=== PATIENT | female | born 1965 | race American Indian/Alaskan Native ===

== ENCOUNTER 2020-02-26 05:56 | Day surgery (SDC) | payer MEDICARE ==
[2020-02-26] MEDS ORDERED: SODIUM CHLORIDE 0.9% 1000 ML 1,000 ML IV SCH (06:00)
[2020-02-26 07:25] LABS: Hematocrit 24.4 % (30.3-42.9); Hemoglobin 8.2 gm/dl (10.1-14.3); Mean Corpuscular HGB Conc 34 % (30-34); Mean Corpuscular Volume 95 fl (79-97); Platelet Count 149 K/mm3 (140-440); Red Blood Count 2.56 M/mm3 (3.65-5.03); Red Cell Distribution Width 15.8 % (13.2-15.2)
--- NOTE | 2020-02-26 07:34 | Anesthesia Consultation ---
Anesthesia Consult and Med Hx Date of service: 02/26/20 - Airway Anesthetic Teeth Evaluation: Poor ROM Head & Neck: Adequate Mental/Hyoid Distance: Adequate Mallampati Class: Class III Intubation Access Assessment: Possibly Difficult - Pulmonary Exam CTA: Yes - Cardiac Exam Cardiac Exam: RRR - Pre-Operative Health Status ASA Pre-Surgery Classification: ASA3 Proposed Anesthetic Plan: General - Pulmonary Hx Smoking: No Hx Respiratory Symptoms: No Hx Sleep Apnea: Yes (compliant with CPAP) - Cardiovascular System Hx Hypertension: Yes (poorly controlled) Hx Heart Attack/AMI: No Hx Percutaneous Transluminal Coronary Angioplasty (PTCA): No Hx Cardia Arrhythmia: No - Central Nervous System CVA: No - Endocrine Hx End Stage Renal Disease: Yes (last HD 02/25/20) Hx Liver Disease: No Hx Insulin Dependent Diabetes: No Hx Non-Insulin Dependent Diabetes: No Hx Thyroid Disease: No - Hematic Hx Anemia: Yes - Other Systems Hx Obesity: No - Additional Comments Anesthesia Medical History Comments: No hx anesthetic complications. Hypertensive in preop and patient states shse takes an extra dose of clonidine prn when BP is this high at home. Asymptomatic. Will give home dose clonidine in preop.
--- NOTE | 2020-02-26 07:34 | Anesthesia Day of Surgery ---
Anesthesia Day of Surgery - Day of Surgery Patient Examined: Yes Patient H&P Reviewed: Yes Patient is NPO: Yes
[2020-02-26 07:36] LABS: Calcium 8.7 mg/dL (8.4-10.2)
[2020-02-26] MEDS ORDERED: LIDOCAINE MPF (2%) 20 MG/1 ML VIAL 5 ML ONE (07:48)
[2020-02-26] MEDS ORDERED: ONDANSETRON 4 MG/2 ML INJ ONE (07:48)
[2020-02-26] MEDS ORDERED: fentaNYL 100 MCG/2 ML INJ ONE (07:49)
[2020-02-26] MEDS ORDERED: propofoL 200 MG/20 ML VIAL IV ONE (07:49)
[2020-02-26] MEDS ORDERED: GELATIN SPONGE SIZE 100 TP ONE ×2 (07:54→09:07)
[2020-02-26] MEDS ORDERED: HEPARIN 10,000 UNITS/10 ML VIAL ONE (07:54)
[2020-02-26] MEDS ORDERED: SODIUM CHLORIDE 0.9% 250ML 250 ML ONE (07:54)
[2020-02-26] MEDS ORDERED: THROMBIN (RECOMBINANT) 5,000 UNIT VIAL TP ONE ×2 (07:55→09:07)
[2020-02-26] MEDS ORDERED: ceFAZolin/STERILE WATER 2 GM/20 ML SYRINGE IV NR (08:00)
[2020-02-26] MEDS ORDERED: SODIUM CHLORIDE 0.9% IRR 1,000 ML BOTTLE IR ONE (09:06)
[2020-02-26] MEDS ORDERED: HEPARIN IR ONE (09:07)
[2020-02-26] MEDS ORDERED: SODIUM CHLORIDE 0.9% IR ONE (09:07)
[2020-02-26] MEDS ORDERED: PROTAMINE SULFATE 50 MG/5 ML INJ ONE (09:48)
--- NOTE | 2020-02-26 10:05 | Post Operative Note ---
Date of procedure: 02/26/20 Pre-op diagnosis: ESRD Post-op diagnosis: same Procedure: Right Arm AV Graft Insertion Anesthesia: GETA Surgeon: DEEP RODRIGUEZ Estimated blood loss: other (25ml) Pathology: none Condition: stable Disposition: PACU
[2020-02-26] MEDS ORDERED: oxyCODONE /ACETAMINOPHEN 5-325MG TAB PO PRN (10:06)
--- NOTE | 2020-02-26 10:06 | Short Stay Summary ---
Short Stay Documentation Date of service: 02/26/20 - History H&P: obtained from office Past Medical History: ESRD, hypertension - Allergies and Medications Current Medications: Allergies No Known Allergies Allergy (Unverified 02/19/20 14:25) Home Medications Medication Instructions Recorded Confirmed Last Taken Type Folic Acid/Vit B Complex and C 800 mcg PO DAILY 02/23/20 02/26/20 02/25/20 09:00 History [Dialyvite 800 Chewable Wafer] ISOSORBIDE MONOnitrate [Imdur ER] 30 mg PO DAILY 02/23/20 02/26/20 02/26/20 05:00 History NIFEdipine [Adalat cc] 90 mg PO DAILY 02/23/20 02/26/20 02/26/20 05:00 History Sevelamer Carbonate [Renvela] 800 mg PO TIDWM 02/23/20 02/26/20 02/25/20 19:00 History Zolpidem [Ambien] 5 mg PO QHS PRN 02/23/20 02/26/20 02/25/20 20:00 History cloNIDine [Catapres] 0.1 mg PO DAILY PRN 02/23/20 02/26/20 02/26/20 07:28 History hydrALAZINE [Apresoline TAB] 200 mg PO TID 02/23/20 02/26/20 02/26/20 05:00 History Active Medications Cefazolin Sodium (Ancef/Sterile Water 2 Gm/20 Ml) 2 gm IV PREOP NR Stop: 02/26/20 20:00 Fentanyl (Sublimaze) 50 mcg IV Q5MIN PRN PRN Reason: Pain , Severe (7-10) Stop: 02/26/20 20:00 Sodium Chloride (Nacl 0.9% 1000 Ml) 1,000 mls @ 42 mls/hr IV DIRECT RAJAN Stop: 02/26/20 23:59 Last Admin: 02/26/20 07:55 Dose: 42 mls/hr Documented by: - Physical exam General appearance: no acute distress HEENT: Atraumatic Lungs: Normal air movement Heart: Regular rate Extremities: no ischemia - Hospital course Hospital course: the patient was taken to the operating room and had a right arm av graft insertion performed. please refer to the operative note concerning details of the procedure. the patient tolerated the procedure well and was discharged home in stable condition. - Disposition Condition at discharge: Stable Disposition: DC-01 TO HOME OR SELFCARE Short Stay Discharge Plan Follow up with: PRIMARY CARE, [Primary Care Provider] - 7 Days
[2020-02-26] MEDS ORDERED: PHENYLEPHRINE/NS 1,000 MCG/10 ML SYRINGE (OR USE) IV ONE (10:11)
[2020-02-26] MEDS: fentaNYL 100 MCG/2 ML INJ IV PRN ×3 (10:25→10:45)
--- NOTE | 2020-02-26 10:31 | Operative Report ---
STAFF SURGEON: Dr. Vivek Abreu. PREOPERATIVE DIAGNOSIS: End-stage renal disease. POSTOPERATIVE DIAGNOSIS: End-stage renal disease. PROCEDURE PERFORMED: Right arm arteriovenous graft insertion. COMPLICATIONS: None. ESTIMATED BLOOD LOSS: 25 mL. ANESTHESIA: General. 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 The patient did not have any suitable veins in the right upper extremity and therefore was recommended to undergo AV graft insertion. The patient was explained the risks, benefits and alternatives of the procedure, expressed understanding and wished to proceed. DESCRIPTION OF PROCEDURE: After appropriate consent was obtained, the patient was brought back to the operating room and placed on the operating table in supine position with the right arm extended. The patient was given appropriate medication for general anesthesia, had LMA placed without difficulty. The right arm was prepped and draped in the usual sterile fashion with ChloraPrep. Appropriate preoperative antibiotics were administered and appropriate time-out performed indicating correct patient, procedure, and site of the procedure. We then began the operation making a longitudinal incision near the antecubital fossa. This was carried through the subcutaneous tissue with a combination of blunt dissection and electrocautery. Dissection was continued through the bicipital aponeurosis and the brachial artery was identified and found to be suitable for arterial inflow. This was mobilized for appropriate distance both proximally and distally. We then turned our attention near the axilla and made a transverse incision. This was carried through subcutaneous tissue with a combination of blunt dissection and electrocautery. The fascia overlying the axillary neurovascular bundle was incised, which allowed to expose the axillary vein, was found to be suitable for venous outflow, was mobilized for appropriate distance both proximally and distally. We then proceeded to create a subcutaneous tunnel between the two incisions bringing through a 4-7 mm Propaten graft. The patient was given 5000 units of unfractionated heparin. After appropriate timeout elapsed, the vascular clamps were placed on the brachial artery, both proximally and distally. Longitudinal arteriotomy was made with a #11 blade and extended with Moralez scissors. The graft was appropriately spatulated and end-to-side anastomosis was performed with a running 6-0 Prolene suture. Once complete flow was reestablished through the graft, had a nice palpable pulse. We then cut the graft to appropriate length and was spatulated. Vascular clamps were placed on the axillary vein, both proximally and distally. We then proceeded to make a longitudinal venotomy with a #11 blade and extended with Moralez scissors, then an end-to-side anastomosis was performed with a running 5-0 Prolene suture. Once complete, flow was established through the graft and had a nice palpable thrill. We then proceeded to obtain hemostasis along our suture lines, which was obtained with hemostatic agents. Once we were satisfied with hemostasis, then proceeded to close both wounds with a deep subcutaneous layer with interrupted 3-0 PDS. Skin was approximated with wanda. Appropriate dressing was placed. The patient tolerated the procedure well, emerged from the general anesthesia, had LMA removed, and was sent to recovery in stable condition. All the sponges, instrument and needle counts were correct at the completion of the operation. JOB# [id number] TIFFANY/JONAH
[2020-02-26] MEDS ORDERED: ONDANSETRON 4 MG/2 ML INJ IV NR (11:04)
[2020-02-26 11:34] VITALS: BP 179/85
[2020-02-26] MEDS ORDERED: HEPARIN 10,000 UNIT/1 ML VIAL IV ONE (12:30)
--- NOTE | 2020-02-26 13:34 | Post Anesthesia Evaluation ---
- Post Anesthesia Evaluation Patient Participated: Yes Airway Patent: Yes Stable Respiratory Function: Yes Nausea/Vomiting: No Temp > 96.8F: Yes Pain Manageable: Yes Adequeate Hydration: Yes Anesthesia Complications: No
== END 2020-02-26 12:40 | disposition home or self-care (01) ==
LOC: OR 05:56
PROVIDERS: ATTEND Surgery Vascular Surgery
DX: I12.0 Hypertensive chronic kidney disease with stage 5 chronic kidney disease or end stage renal disease (principal); G47.30 Sleep apnea, unspecified; N18.6 End stage renal disease; Z79.899 Other long term (current) drug therapy; Z94.0 Kidney transplant status; Z98.890 Other specified postprocedural states; Z86.2 Personal history of diseases of the blood and blood-forming organs and certain disorders involving the immune mechanism
CPT/HCPCS: 36415; 36830; 80048; 85027; A4649; C1768; J0690; J1644; J2370; J2405; J2704; J2720; J3010; J7030; J7040; J7050

== ENCOUNTER 2020-04-15 09:33 | Day surgery (SDC) | payer MEDICARE ==
[2020-04-15] MEDS ORDERED: BACTERIOSTATIC SODIUM CHLORIDE 0.9% 30 ML VIAL INFILTRATI ONE (10:15)
[2020-04-15] MEDS ORDERED: SODIUM CHLORIDE 0.9% 1000 ML 1,000 ML IV SCH (10:45)
--- NOTE | 2020-04-15 10:50 | Anesthesia Consultation ---
Anesthesia Consult and Med Hx Date of service: 04/15/20 - Airway Anesthetic Teeth Evaluation: Good ROM Head & Neck: Adequate Mental/Hyoid Distance: Adequate Mallampati Class: Class II Intubation Access Assessment: Good - Pulmonary Exam CTA: Yes - Cardiac Exam Cardiac Exam: RRR - Pre-Operative Health Status ASA Pre-Surgery Classification: ASA3 Proposed Anesthetic Plan: General - Pulmonary Hx Smoking: No Hx Asthma: No Hx Respiratory Symptoms: No COPD: No Hx Pneumonia: No Hx Sleep Apnea: Yes (compliant with CPAP) - Cardiovascular System Hx Hypertension: Yes (poorly controlled) Hx Heart Attack/AMI: No Hx Percutaneous Transluminal Coronary Angioplasty (PTCA): No Hx Cardia Arrhythmia: No Hx Internal Defibrillator: No Hx Heart Murmur: Yes - Central Nervous System Hx Seizures: No CVA: No Hx Back Pain: No Hx Psychiatric Problems: No - Endocrine Hx Renal Disease: Yes Hx End Stage Renal Disease: Yes Hx Cirrhosis: No Hx Liver Disease: No Hx Insulin Dependent Diabetes: No Hx Non-Insulin Dependent Diabetes: No Hx Thyroid Disease: No - Hematic Hx Anemia: Yes Hx Sickle Cell Disease: No - Other Systems Hx Alcohol Use: No Hx Substance Use: No Hx Cancer: No Hx Obesity: No - Additional Comments Anesthesia Medical History Comments: pt has anjelica-paralyzed vocal cord
[2020-04-15 10:51] LABS: Mean Corpuscular HGB Conc 29 % (30-34); Mean Corpuscular Volume 102 fl (79-97); Platelet Count 133 K/mm3 (140-440); Red Blood Count 4.43 M/mm3 (3.65-5.03); Red Cell Distribution Width 16.1 % (13.2-15.2)
--- NOTE | 2020-04-15 10:52 | Anesthesia Day of Surgery ---
Anesthesia Day of Surgery - Day of Surgery Patient Examined: Yes Patient H&P Reviewed: Yes Patient is NPO: Yes Beta Blockers: No
[2020-04-15 10:54] LABS: Hematocrit 45.1 % (30.3-42.9); Hemoglobin 13.2 gm/dl (10.1-14.3)
[2020-04-15] MEDS ORDERED: SODIUM CHLORIDE 0.9% 250ML 250 ML ONE (10:57)
[2020-04-15] MEDS ORDERED: HEPARIN 10,000 UNITS/10 ML VIAL ONE (10:57)
[2020-04-15] MEDS ORDERED: MIDAZOLAM 2 MG/2 ML INJ IV NR ×2 (11:00→14:00)
[2020-04-15] MEDS ORDERED: ceFAZolin/STERILE WATER 2 GM/20 ML SYRINGE IV NR (11:00)
[2020-04-15 11:09] LABS: Calcium 9.5 mg/dL (8.4-10.2)
[2020-04-15] MEDS ORDERED: ePHEDrine SULFATE 50 MG/1 ML INJ ONE (14:13)
[2020-04-15] MEDS ORDERED: propofoL 200 MG/20 ML VIAL IV ONE (16:00)
[2020-04-15] MEDS ORDERED: fentaNYL 100 MCG/2 ML INJ ONE (16:00)
[2020-04-15] MEDS ORDERED: GELATIN SPONGE SIZE 100 TP ONE (16:05)
[2020-04-15] MEDS ORDERED: THROMBIN (RECOMBINANT) 5,000 UNIT VIAL TP ONE (16:05)
[2020-04-15] MEDS ORDERED: GLYCOPYRROLATE 0.4 MG/2 ML INJ ONE (16:14)
[2020-04-15] MEDS ORDERED: ONDANSETRON 4 MG/2 ML INJ ONE (16:14)
[2020-04-15] MEDS ORDERED: PHENYLEPHRINE/NS 1,000 MCG/10 ML SYRINGE (OR USE) IV ONE ×2 (16:14)
[2020-04-15] MEDS ORDERED: LIDOCAINE MPF (2%) 20 MG/1 ML VIAL 5 ML ONE (16:14)
[2020-04-15] MEDS ORDERED: dexAMETHasone 20 MG/5 ML VIAL ONE (16:14)
[2020-04-15] MEDS ORDERED: HEPARIN 10,000 UNITS/10 ML VIAL IR ONE (17:32)
[2020-04-15] MEDS ORDERED: SODIUM CHLORIDE 0.9% IRR 1,000 ML BOTTLE IR ONE (17:32)
[2020-04-15] MEDS ORDERED: oxyCODONE /ACETAMINOPHEN 5-325MG TAB PO PRN (18:38)
--- NOTE | 2020-04-15 18:38 | Post Operative Note ---
Date of procedure: 04/15/20 Pre-op diagnosis: ESRD Post-op diagnosis: same Procedure: Left Arm AV Fistula Excision Anesthesia: GETA Surgeon: DEEP RODRIGUEZ Estimated blood loss: other (25ml) Condition: stable Disposition: PACU
--- NOTE | 2020-04-15 18:40 | Short Stay Summary ---
Short Stay Documentation Date of service: 04/15/20 - History H&P: obtained from office Past Medical History: ESRD, hypertension - Allergies and Medications Current Medications: Allergies No Known Allergies Allergy (Unverified 02/19/20 14:25) Home Medications Medication Instructions Recorded Confirmed Last Taken Type Folic Acid/Vit B Complex and C 800 mcg PO DAILY 02/23/20 04/15/20 04/14/20 08:00 History [Dialyvite 800 Chewable Wafer] ISOSORBIDE MONOnitrate [Imdur ER] 30 mg PO DAILY 02/23/20 04/15/20 04/15/20 05:00 History NIFEdipine [Adalat cc] 90 mg PO DAILY 02/23/20 04/15/20 04/15/20 05:00 History Sevelamer Carbonate [Renvela] 800 mg PO TIDWM 02/23/20 04/15/20 04/14/20 17:00 History cloNIDine [Catapres] 0.1 mg PO DAILY PRN 02/23/20 04/15/20 04/15/20 05:00 History hydrALAZINE [Apresoline TAB] 200 mg PO TID 02/23/20 04/15/20 04/15/20 05:30 History Omeprazole 40 mg PO DAILY 04/13/20 04/15/20 04/14/20 08:00 History Active Medications Cefazolin Sodium (Ancef/Sterile Water 2 Gm/20 Ml) 2 gm IV PREOP NR Stop: 04/15/20 21:00 Sodium Chloride (Nacl 0.9% 1000 Ml) 1,000 mls @ 42 mls/hr IV DIRECT RAJAN Last Admin: 04/15/20 10:40 Dose: 42 mls/hr Documented by: Midazolam HCl (Versed) 2 mg IV PREOP NR Stop: 04/15/20 23:59 Last Admin: 04/15/20 11:10 Dose: 2 mg Documented by: Midazolam HCl (Versed) 2 mg IV PREOP NR Stop: 04/15/20 21:00 Last Admin: 04/15/20 14:05 Dose: 2 mg Documented by: Oxycodone/Acetaminophen (Percocet 5/325) 2 tab PO Q4H PRN PRN Reason: Pain, Moderate (4-6) - Physical exam General appearance: no acute distress HEENT: Atraumatic Lungs: Normal air movement Heart: Regular rate Extremities: no ischemia - Hospital course Hospital course: the patient was taken to the operating room and had a fistula excision performed. please refer to the operative note concerning details of the procedure. the patient tolerated the procedure well and was discharged home in stable condition. - Disposition Condition at discharge: Stable Disposition: DC-01 TO HOME OR SELFCARE Short Stay Discharge Plan Follow up with: PRIMARY CARE, [Primary Care Provider] - 7 Days
[2020-04-15] MEDS ORDERED: hydrALAZINE 20 MG/1 ML INJ ONE (18:41)
[2020-04-15] MEDS ORDERED: HYDROmorphone 1 MG/1 ML INJ ONE (18:44)
[2020-04-15] MEDS ORDERED: VERAPAMIL 5 MG/2 ML INJ ONE (18:53)
--- NOTE | 2020-04-15 19:17 | Post Anesthesia Evaluation ---
- Post Anesthesia Evaluation Patient Participated: Yes Airway Patent: Yes Stable Respiratory Function: Yes Nausea/Vomiting: No Temp > 96.8F: Yes Pain Manageable: Yes Adequeate Hydration: Yes Anesthesia Complications: No Block Receding Appropriately: Not Applicable Patient on Ventilator: No
[2020-04-15 20:42] VITALS: BP 144/92
--- NOTE | 2020-04-15 22:42 | Operative Report ---
STAFF SURGEON: Dr. Vivek Abreu. PREOPERATIVE DIAGNOSIS: End-stage renal disease. POSTOPERATIVE DIAGNOSIS: End-stage renal disease. PROCEDURE PERFORMED: Left arm AV fistula, excision. COMPLICATIONS: None. ESTIMATED BLOOD LOSS: 25 mL. ANESTHESIA: General. INDICATIONS FOR PROCEDURE: This is a 54-year-old female with end-stage renal disease-on hemodialysis, who had malfunctioning superiorly and an aneurysmal AV fistula, left arm. The patient then subsequently underwent a new access in the right arm which is functioning properly now and the patient now presents to have this aneurysm fistula excised. The patient was explained all the risks, benefits and alternatives of the procedure, expressed understanding and wished to proceed. DESCRIPTION OF PROCEDURE: After appropriate consent was obtained, the patient was brought back to the operating room and placed on the operating table in a supine position with the left arm extended. The patient was given appropriate medication for general anesthesia and had LMA placed without difficulty. The left arm was prepped and draped in the usual sterile fashion with ChloraPrep. Appropriate preoperative antibiotics were administered. Appropriate time-out performed indicating the correct patient, procedure and site of procedure and we then began the operation by making an elliptical incision around the existing AV fistula. This was then carried through the subcutaneous tissue with a combination of blunt dissection and electrocautery. The fistula in the aneurysmal portion as well as the overlying skin was dissected out. Control of the fistula was obtained both proximally and distally with a hemostat. The fistula was then excised both proximally and distally and we removed off the bed of the underlying fascia. This was discarded. We then proceeded to suture ligate the 2 ends of the obtained fistula with running 5-0 Prolene suture in 2 layers. Once that was complete, we then looked to obtain hemostasis along our suture lines and the wound bed, which was obtained with hemostatic agents and electrocautery. Once we were satisfied with hemostasis, we then proceeded to irrigate the wound bed with saline solution and then proceeded to close the wound with deep subcutaneous layer with interrupted 3-0 PDS and then the skin was approximated with wanda. Appropriate dressing was placed. The patient tolerated the procedure well, emerged from general anesthesia, the LMA removed and was sent to recovery in a stable condition. All the sponges, instrument and needle counts were correct at the completion of the operation. JOB# [id number] TIFFANY/JONAH
== END 2020-04-15 09:34 | disposition home or self-care (01) ==
LOC: OR 09:33
PROVIDERS: ATTEND Surgery Vascular Surgery
DX: I12.0 Hypertensive chronic kidney disease with stage 5 chronic kidney disease or end stage renal disease (principal); N18.6 End stage renal disease; E78.00 Pure hypercholesterolemia, unspecified; G47.30 Sleep apnea, unspecified; K21.9 Gastro-esophageal reflux disease without esophagitis; D64.9 Anemia, unspecified; Z98.890 Other specified postprocedural states; Z79.899 Other long term (current) drug therapy
CPT/HCPCS: 36415; 36832; 80048; 85027; 88304; A4649; J0360; J0690; J1100; J1170; J1644; J2250; J2370; J2405; J2704; J3010; J7030; J7050